=== PATIENT | male | born 1990 | race Caucasian/White ===

== ENCOUNTER 2020-03-13 15:35 | Emergency (ER) | payer OTHER ==
[~2020-03-13] VITALS: Ht 180.3 cm; Wt 83.9 kg
[2020-03-13 15:35] VITALS: BP 136/79
--- NOTE | 2020-03-13 16:04 | NUR ---
CORONAVIRUS SWAB SENT TO LAB
== END 2020-03-13 16:15 | disposition home or self-care (01) ==
LOC: ER 15:38
DX: Z03.818 Encounter for observation for suspected exposure to other biological agents ruled out (principal); J45.909 Unspecified asthma, uncomplicated
CPT/HCPCS: 99283; U0003

== ENCOUNTER 2020-04-10 16:02 | Emergency (ER) | payer OTHER ==
[~2020-04-10] VITALS: Ht 180.3 cm; Wt 83.9 kg
[2020-04-10 16:21] VITALS: BP 136/80
--- NOTE | 2020-04-16 | NUR ---
RECEIVED A CALL FROM LAB REPORTING NEGATIVE COVID TEST RESULT
== END 2020-04-10 17:51 | disposition home or self-care (01) ==
LOC: ER 16:04
DX: Z03.818 Encounter for observation for suspected exposure to other biological agents ruled out (principal); J45.909 Unspecified asthma, uncomplicated
CPT/HCPCS: 99283; C9803; U0003

== ENCOUNTER 2020-04-21 10:23 | Emergency (ER) | payer OTHER ==
[~2020-04-21] VITALS: Ht 180.3 cm; Wt 83.9 kg
[2020-04-21 10:30] VITALS: BP 138/86
--- NOTE | 2020-04-21 10:47 | NUR ---
covid 19 swab collected and sent to lab
--- NOTE | 2020-04-21 10:49 | NUR ---
Patient discharged to home in stable condition. Written and verbal after care instructions given. Patient verbalizes understanding of instruction.
== END 2020-04-21 10:49 | disposition home or self-care (01) ==
LOC: ER 10:29
DX: Z11.59 Encounter for screening for other viral diseases (principal); J45.909 Unspecified asthma, uncomplicated
CPT/HCPCS: 99283; C9803; U0003

== ENCOUNTER 2020-05-06 12:44 | Emergency (ER) | payer OTHER ==
[~2020-05-06] VITALS: Ht 180.3 cm; Wt 81.6 kg
[2020-05-06 12:50] VITALS: BP 136/78
--- NOTE | 2020-05-06 13:11 | NUR ---
covid swab done and sent to lab
--- NOTE | 2020-05-06 13:11 | NUR ---
Patient discharged to home in stable condition. Written and verbal after care instructions given. Patient verbalizes understanding of instruction. Pt ambulatory with a steady gait
== END 2020-05-06 13:12 | disposition home or self-care (01) ==
LOC: ER 12:45
DX: Z03.818 Encounter for observation for suspected exposure to other biological agents ruled out (principal)
CPT/HCPCS: 99283; C9803; U0003

== ENCOUNTER 2020-05-15 15:50 | Emergency (ER) | payer OTHER ==
[~2020-05-15] VITALS: Ht 180.3 cm; Wt 81.6 kg
[2020-05-15 16:00] VITALS: BP 132/79
--- NOTE | 2020-05-15 16:10 | NUR ---
COVID SWAB OBTAINED AND SENT TO LAB.
--- NOTE | 2020-05-15 16:17 | NUR ---
Patient discharged to home in stable condition. Written and verbal after care instructions given. Patient verbalizes understanding of instruction.
== END 2020-05-15 16:18 | disposition home or self-care (01) ==
LOC: ER 15:51
DX: Z11.59 Encounter for screening for other viral diseases (principal); J45.909 Unspecified asthma, uncomplicated
CPT/HCPCS: 99283; C9803; U0003

== ENCOUNTER 2020-06-02 08:48 | Emergency (ER) | payer OTHER ==
[~2020-06-02] VITALS: Ht 180.3 cm; Wt 81.6 kg
[2020-06-02 08:54] VITALS: BP 135/81
--- NOTE | 2020-06-02 09:04 | NUR ---
COVID SPECIMENB OBTAINED AND SENT TO LAB.
--- NOTE | 2020-06-02 09:10 | NUR ---
Patient discharged to home in stable condition. Written and verbal after care instructions given. Patient verbalizes understanding of instruction.
== END 2020-06-02 09:10 | disposition home or self-care (01) ==
LOC: ER 08:58
DX: Z00.8 Encounter for other general examination (principal); Z20.828 Contact with and (suspected) exposure to other viral communicable diseases; J45.909 Unspecified asthma, uncomplicated
CPT/HCPCS: 99283; C9803; U0003

== ENCOUNTER 2020-06-13 14:02 | Emergency (ER) | payer OTHER ==
[~2020-06-13] VITALS: Ht 180.3 cm; Wt 81.6 kg
[2020-06-13 14:25] VITALS: BP 130/74
== END 2020-06-13 15:14 | disposition home or self-care (01) ==
LOC: ER 14:03
DX: Z20.828 Contact with and (suspected) exposure to other viral communicable diseases (principal); J45.909 Unspecified asthma, uncomplicated
CPT/HCPCS: 99283; C9803; U0003

== ENCOUNTER 2020-06-25 14:32 | Emergency (ER) | payer OTHER ==
[~2020-06-25] VITALS: Ht 180.3 cm; Wt 81.6 kg
[2020-06-25 14:35] VITALS: BP 140/89
== END 2020-06-25 16:09 | disposition home or self-care (01) ==
LOC: ER 14:32
DX: Z20.828 Contact with and (suspected) exposure to other viral communicable diseases (principal); J45.909 Unspecified asthma, uncomplicated
CPT/HCPCS: 99283; C9803; U0003

== ENCOUNTER 2020-07-06 15:13 | Emergency (ER) | payer OTHER ==
[~2020-07-06] VITALS: Ht 180.3 cm; Wt 83.9 kg
[2020-07-06 15:16] VITALS: BP 135/80
--- NOTE | 2020-07-06 15:26 | NUR ---
COVID SWAB DONE AND SENT TO LAB.
== END 2020-07-06 15:26 | disposition home or self-care (01) ==
LOC: ER 15:17
DX: Z20.828 Contact with and (suspected) exposure to other viral communicable diseases (principal); J45.909 Unspecified asthma, uncomplicated
CPT/HCPCS: 99283; C9803; U0003

== ENCOUNTER 2020-07-19 14:41 | Emergency (ER) | payer OTHER ==
[~2020-07-19] VITALS: Ht 180.3 cm; Wt 83.9 kg
[2020-07-19 14:43] VITALS: BP 129/66
--- NOTE | 2020-07-19 15:05 | NUR ---
Patient discharged to home in stable condition. Written and verbal after care instructions given. Patient verbalizes understanding of instruction.
== END 2020-07-19 15:05 | disposition home or self-care (01) ==
LOC: ER 14:42
DX: Z20.828 Contact with and (suspected) exposure to other viral communicable diseases (principal); J45.909 Unspecified asthma, uncomplicated
CPT/HCPCS: 99283; C9803; U0003

== ENCOUNTER 2020-07-23 12:33 | Emergency (ER) | payer OTHER ==
[~2020-07-23] VITALS: Ht 180.3 cm; Wt 83.9 kg
[2020-07-23 12:40] VITALS: BP 121/72
== END 2020-07-23 12:56 | disposition home or self-care (01) ==
LOC: ER 12:37
DX: Z20.828 Contact with and (suspected) exposure to other viral communicable diseases (principal); J45.909 Unspecified asthma, uncomplicated
CPT/HCPCS: 99283; C9803; U0003

== ENCOUNTER 2020-07-31 16:17 | Emergency (ER) | payer OTHER ==
[~2020-07-31] VITALS: Ht 180.3 cm; Wt 79.4 kg
[2020-07-31 16:35] VITALS: BP 126/65
== END 2020-07-31 16:43 | disposition home or self-care (01) ==
LOC: ER 16:20
DX: Z20.828 Contact with and (suspected) exposure to other viral communicable diseases (principal); J45.909 Unspecified asthma, uncomplicated
CPT/HCPCS: 99283; C9803; U0003

== ENCOUNTER 2020-08-07 12:45 | Emergency (ER) | payer OTHER ==
[~2020-08-07] VITALS: Ht 180.3 cm; Wt 79.4 kg
[2020-08-07 12:53] VITALS: BP 138/73
--- NOTE | 2020-08-07 13:20 | NUR ---
COVID SWAB DONE AND SENT TO LAB
--- NOTE | 2020-08-07 13:21 | NUR ---
Patient discharged to home in stable condition. Written and verbal after care instructions given. Patient verbalizes understanding of instruction. Pt ambulatory with a steady gait
== END 2020-08-07 13:22 | disposition home or self-care (01) ==
LOC: ER 12:46
DX: Z20.828 Contact with and (suspected) exposure to other viral communicable diseases (principal); J45.909 Unspecified asthma, uncomplicated
CPT/HCPCS: 99283; C9803; U0003

== ENCOUNTER 2020-08-14 13:38 | Emergency (ER) | payer OTHER ==
[~2020-08-14] VITALS: Ht 182.9 cm; Wt 68.0 kg
[2020-08-14 13:43] VITALS: BP 134/84
--- NOTE | 2020-08-14 14:26 | NUR ---
covid swab sent. Patient discharged to home in stable condition. Written and verbal after care instructions given. Patient verbalizes understanding of instruction.
== END 2020-08-14 14:26 | disposition home or self-care (01) ==
LOC: ER 13:38
DX: Z20.828 Contact with and (suspected) exposure to other viral communicable diseases (principal); J45.909 Unspecified asthma, uncomplicated
CPT/HCPCS: 99283; C9803; U0003

== ENCOUNTER 2020-08-21 14:32 | Emergency (ER) | payer OTHER ==
[~2020-08-21] VITALS: Ht 182.9 cm; Wt 68.0 kg
[2020-08-21 14:32] VITALS: BP 116/70
--- NOTE | 2020-08-21 15:26 | NUR ---
Patient discharged to home in stable condition. Written and verbal after care instructions given. Patient verbalizes understanding of instruction.
== END 2020-08-21 15:27 | disposition home or self-care (01) ==
LOC: ER 14:33
DX: Z20.828 Contact with and (suspected) exposure to other viral communicable diseases (principal); J45.909 Unspecified asthma, uncomplicated
CPT/HCPCS: 99283; C9803; U0003

== ENCOUNTER 2020-08-28 14:37 | Emergency (ER) | payer OTHER ==
[~2020-08-28] VITALS: Ht 180.3 cm; Wt 79.4 kg
[2020-08-28 14:50] VITALS: BP 127/88
== END 2020-08-28 15:15 | disposition home or self-care (01) ==
LOC: ER 14:38
DX: Z20.828 Contact with and (suspected) exposure to other viral communicable diseases (principal); J45.909 Unspecified asthma, uncomplicated
CPT/HCPCS: 99283; C9803; U0003

== ENCOUNTER 2020-09-09 15:38 | Emergency (ER) | payer OTHER ==
[~2020-09-09] VITALS: Ht 180.3 cm; Wt 79.4 kg
[2020-09-09 15:50] VITALS: BP 128/71
== END 2020-09-09 16:41 | disposition home or self-care (01) ==
LOC: ER 15:42
DX: Z20.828 Contact with and (suspected) exposure to other viral communicable diseases (principal); J45.909 Unspecified asthma, uncomplicated
CPT/HCPCS: 99283; C9803; U0003

== ENCOUNTER 2020-09-16 15:56 | Emergency (ER) | payer OTHER ==
[~2020-09-16] VITALS: Ht 180.3 cm; Wt 79.4 kg
[2020-09-16 15:59] VITALS: BP 132/86
--- NOTE | 2020-09-16 16:30 | NUR ---
COVID SWAB SENT. Patient discharged to home in stable condition. Written and verbal after care instructions given. Patient verbalizes understanding of instruction.
== END 2020-09-16 16:31 | disposition home or self-care (01) ==
LOC: ER 15:57
DX: Z20.828 Contact with and (suspected) exposure to other viral communicable diseases (principal); J45.909 Unspecified asthma, uncomplicated
CPT/HCPCS: 99283; C9803; U0003

== ENCOUNTER 2020-09-25 18:03 | Emergency (ER) | payer OTHER ==
[~2020-09-25] VITALS: Ht 180.3 cm; Wt 79.4 kg
[2020-09-25 18:57] VITALS: BP 154/80
--- NOTE | 2020-09-25 20:04 | NUR ---
covid swab collected and sent to lab.
== END 2020-09-25 20:17 | disposition home or self-care (01) ==
LOC: ER 18:03
DX: Z20.828 Contact with and (suspected) exposure to other viral communicable diseases (principal); J44.9 Chronic obstructive pulmonary disease, unspecified
CPT/HCPCS: 99283; C9803; U0003

== ENCOUNTER 2020-10-08 13:48 | Emergency (ER) | payer OTHER ==
[~2020-10-08] VITALS: Ht 180.3 cm; Wt 79.4 kg
[2020-10-08 14:28] VITALS: BP 135/86
== END 2020-10-08 15:21 | disposition home or self-care (01) ==
LOC: ER 13:51
DX: Z20.828 Contact with and (suspected) exposure to other viral communicable diseases (principal); J45.909 Unspecified asthma, uncomplicated
CPT/HCPCS: 99283; C9803; U0003

== ENCOUNTER 2022-10-25 10:46 | Emergency (ER) | payer BC, OTHER ==
[~2022-10-25] VITALS: Ht 180.3 cm; Wt 83.0 kg
--- NOTE | 2022-10-25 10:49 | NUR ---
called for triage, no response
[2022-10-25 10:50] VITALS: BP 142/88
--- NOTE | 2022-10-25 10:50 | NUR ---
TO ER CHAIR 1. BIBS C/O PAIN ON HIS LEFT FOURTH DIGIT FINGER, STATED THAT HE WAS PICKING AT A [employer]ANG NAIL AND BECAME RED AND SWOLLEN X1 DAY. AWAITING MD WALKER.
[2022-10-25] MEDS ORDERED: SULF1TAB48 PO (11:01)
[2022-10-25] MEDS ORDERED: CEPH500C2 PO (11:01)
--- NOTE | 2022-10-25 11:10 | NUR ---
Patient discharged to home in stable condition. Written and verbal after care instructions given. Patient verbalizes understanding of instruction.
== END 2022-10-25 11:10 | disposition home or self-care (01) ==
LOC: ER 10:49
DX: L03.012 Cellulitis of left finger (principal); J45.909 Unspecified asthma, uncomplicated; Z79.899 Other long term (current) drug therapy

== ENCOUNTER 2023-05-27 15:35 | Emergency (ER) | payer BC, OTHER ==
[~2023-05-27] VITALS: Ht 180.3 cm; Wt 83.0 kg
[~2023-05-27 15:35] MED LIST: CEPH500C2 PO; SULF1TAB48 PO
[2023-05-27 15:47] VITALS: BP 120/80; TEMP 98.6; O2SAT 94
== END 2023-05-27 16:37 | disposition home or self-care (01) ==
LOC: ER 15:41
DX: M54.9 Dorsalgia, unspecified (principal); J45.909 Unspecified asthma, uncomplicated; Z79.899 Other long term (current) drug therapy